=== PATIENT | male | born 1970 | race Caucasian/White ===

== ENCOUNTER 2025-03-08 11:24 | Emergency (ER) | payer BC ==
[~2025-03-08] VITALS: Ht 180.3 cm; Wt 111.4 kg
[2025-03-08] MEDS ORDERED: FEXO-25 PO (11:49)
[2025-03-08] MEDS: ondansetron/PF 4mg/2ml inj IV ONE (11:57)
[2025-03-08 11:59] LABS: MEAN PLATELET VOLUME 7.5 FL (7.4-10.4); RED CELL DISTRIBUTION WIDTH 13.1 % (11.5-14.5)
[2025-03-08] MEDS: morphine 4 MG/ML inj SYRINge IV ONE (11:59)
[2025-03-08 12:16] LABS: CREATININE 1.15 MG/DL (0.60-1.10); TOTAL CARBON DIOXIDE 24.3 MMOL/L (24-32); eCRCL 79 ML/MIN; eGFR 67 ML/MIN
--- NOTE | 2025-03-08 12:48 | RADIOLOGY REPORT ---
EXAM: CT CT LUMBAR SPINE HISTORY: INJURY COMPARISON: None TECHNIQUE: Noncontrast axial CT images of the lumbar spine were performed. Sagittal and coronal reformatted images were obtained. This CT exam was performed using one or more of the following dose reduction techniques: Automated exposure control, adjustment of the mA and/or kv according to patient size, or the use of iterative reconstruction techniques. Radiation Dose: CT Dose: CTDI volume is 34.8 mGy. Dose-length product is 1261.6 mGy*cm FINDINGS: No fractures are identified about the lumbar spine. There is 4 mm retrolisthesis L5 on S1. There is advanced degenerative disc disease L5-S1, less severe degenerative disc disease at other levels. There is significant neural foraminal stenosis bilaterally at L5-S1. No high-grade spinal canal stenosis is identified at any level in the lumbar spine. There is a solid mass versus complex cyst involving the right renal superior pole measuring 2.6 cm transverse (image 22, series 3). The potato grader film demonstrates a dilated loop of left mid abdominal small bowel. IMPRESSION: 1. No fracture of the lumbar spine. 2. Degenerative disc disease with significant neural foraminal stenosis bilaterally at L5-S1. These findings may correspond to bilateral lower extremity radicular symptoms in the L5 nerve root distributions. 3. 2.6 cm right renal superior pole solid mass versus complex cyst. Recommend follow-up outpatient pre and post IV contrast CT scan of the abdomen utilizing renal mass protocol for better characterization. 4. The potato grader film demonstrates a single loop of mildly dilated small bowel in the left mid abdomen. This appearance could be due to focal ileus. Consider follow-up CT scan of the abdomen and pelvis to include oral and IV contrast for better characterization.
--- NOTE | 2025-03-08 16:23 | Physician Documentation ---
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 He is in severe pain but denies paralysis, incontinence of stool. Medication Reconciliation Allergies: Coded Allergies: No Known Allergies (Unverified , 03/08/25) Scheduled Fexofenadine Hcl (Joan Allergy), 1 TAB PO Q12H, (Reported) Past Medical History Smoking Status: Current every day smoker Review of Systems All Other Systems at this time: Reviewed and Negative Physical Exam Physical Exam Vital Signs: RN Vital Signs have been reviewed: Yes, Temperature: 98.2, Source: Oral, Heart Rate: 54, Respiratory Rate: 16, BP: 121/81, Pulse Oximetry: 100, Weight: 111.360 Oxygen Flow Rate: 0 Physical Exam HEENT: PERRL, moist oral mucosa, EOMI Pulmonary: No respiratory distress MSK: no deformity Skin: w/d/i, no rash Neuro: alert, nonfocal; 5/5 strength to BLE Psych: normal affect Progress Results/Orders Results/Orders Orders - DOMINGA MILLER MD Mri Lumbar Spine (03/08/25 ) Urinalysis, Cult If Indicated (03/08/25 11:51) Completed Orders - DOMINGA MILLER MD Cbc/Diff (03/08/25 11:51) CMP (03/08/25 11:51) Hydromorphone 1 Mg/Ml/Pf (Dilaudid Inj.) (03/08/25 13:10) Medications Received in ER Medications (Trade) Dose Ordered Sig/Adalid Route PRN Reason Start Time Stop Time Status Last Admin Dose Admin (Zofran 4mg/2ml vial) 4 mg ONCE ONCE IV 03/08/25 11:45 03/08/25 11:46 DC 03/08/25 11:57 4 MG (morphine inj.) 4 mg ONCE ONCE IV 03/08/25 11:45 03/08/25 11:46 DC 03/08/25 11:59 4 MG (Dilaudid inj.) 1 mg ONCE ONCE IV 03/08/25 13:10 03/08/25 13:25 DC 03/08/25 14:08 1 MG Vital Signs 03/08/25 03/08/25 03/08/25 03/08/25 11:33 11:45 11:52 11:59 Temp 98.2 Pulse 63 62 Resp 14 15 14 15 B/P (MAP) 130/86 159/110 (126) Pulse Ox 98 100 O2 Flow Rate 0 0 03/08/25 03/08/25 03/08/25 03/08/25 12:15 12:45 13:15 13:45 Pulse 62 58 52 61 Resp 11 16 11 13 B/P (MAP) 153/98 (116) 130/89 (103) 126/82 (97) Pulse Ox 100 99 99 O2 Flow Rate 0 0 0 03/08/25 03/08/25 03/08/25 03/08/25 14:08 14:15 15:30 16:30 Temp 99.8 Pulse 54 62 52 Resp 12 16 7 10 B/P (MAP) 121/81 (94) 137/88 (104) 143/92 (109) Pulse Ox 100 99 99 O2 Flow Rate 0 0 0 03/08/25 17:30 Pulse 55 Resp 8 B/P (MAP) 153/88 (109) Pulse Ox 100 O2 Flow Rate 0 Laboratory Tests Test 03/08/25 11:45 White Blood Count 7.8 Red Blood Count 4.82 Hemoglobin 14.8 Hematocrit 42.6 Mean Corpuscular Volume 88.4 Mean Corpuscular Hemoglobin 30.7 Mean Corpuscular Hemoglobin Concent 34.7 Red Cell Distribution Width 13.1 Platelet Count 314 Mean Platelet Volume 7.5 Neutrophils (%) (Auto) 54.7 Lymphocytes (%) (Auto) 35.9 Monocytes (%) (Auto) 7.3 Eosinophils (%) (Auto) 1.4 Basophils (%) (Auto) 0.7 Neutrophils # (Auto) 4.3 Lymphocytes # (Auto) 2.8 Monocytes # (Auto) 0.6 Eosinophils # (Auto) 0.1 Basophils # (Auto) 0.1 CBC Comment Sodium Level 138 Potassium Level 4.3 Chloride Level 103 Carbon Dioxide Level 24.3 Anion Gap 11 Blood Urea Nitrogen 16 Creatinine 1.15 H Estimated GFR/1.73 m2 67 BUN/Creatinine Ratio 13.9 Glucose Level 124 H Calcium Level 9.7 Total Bilirubin 0.8 Aspartate Amino Transf (AST/SGOT) 21 Alanine Aminotransferase (ALT/SGPT) 36 Alkaline Phosphatase 64 Total Protein 8.1 Albumin 4.9 Globulin 3.2 Albumin/Globulin Ratio 1.5 Chemistry Comments Medical Decision Making Findings 54 year old male with acute back pain that appears quite severe. CT thus far is unremarkable other than for L5/S1 disease with no intrusion into spinal canal, but pending MRI. Labs unremarkable. Will sign out to oncoming ER physician for continued care and disposition. Differential Diagnosis Ddx = lumbar radiculopathy, cauda equina syndrome, vertebral body fracture, disc herniation, muscle strain Departure Disposition: 30 STILL A PATIENT Impression: Primary Impression: Acute back pain Condition: Improved Referrals: NO PRIMARY CARE PROVIDER (PCP) Education Educated: Patient Educated regarding: diagnosis, treatment, prognosis, need for follow up Signature Scribe Signature: . Attestation: . DOMINGA MILLER MD Mar 08, 2025 16:23
[2025-03-08 16:30] VITALS: TEMP 99.8
[2025-03-08] MEDS: normal saline 1000ML IV soln IVB ONE (18:27)
--- NOTE | 2025-03-08 19:27 | RADIOLOGY REPORT ---
EXAM: MR MRI LUMBAR SPINE INDICATION: low back pain TECHNIQUE: Multiplanar, multisequence MR images of the lumbar spine were obtained without the administration of IV contrast. COMPARISON: CT CT LUMBAR SPINE on DOS: 03/08/25 FINDINGS: [ANATOMY]: Five lumbar-type vertebral bodies are present. The most inferior well-formed disc space will be referred to as L5-S1 for purposes of numbering in this report. 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 [SPINAL CANAL]: The conus medullaris is normal in signal and morphology, terminating at the L1-L2 level. No significant spinal canal narrowing. [FACETS]: Mild facet arthropathy in the lower lumbar spine at L3-4, L4-5, L5-S1 [OTHER]: None. LEVEL BY LEVEL DISCUSSION: [T12-L1]: Vertebral body hemangioma with the areas of fat suppression measuring 2.2 cm at T12. [L1-L2]: Unremarkable. [L2-L3]: Unremarkable. [L3-L4]: Unremarkable. [L4-L5]: Central to left paracentral disc extrusion with inferior extension measuring 4 mm posteriorly and 11 mm in width. Contact with the descending left L5 nerve root. Mild bilateral foraminal narrowing secondary to facet arthropathy [L5-S1]: Circumferential disc bulge with 3 mm posterior extension. Mild bilateral facet arthropathy. Severe right and mild left foraminal narrowing. IMPRESSION: 1. Central to left paracentral disc extrusion with inferior extension measuring 4 mm posteriorly and 11 mm in width. Contact with the descending left L5 nerve root. 2. Mild bilateral foraminal narrowing secondary to facet arthropathy.
[2025-03-08] MEDS: ketorolac trometh 15mg/ml vial 15 MG/ML ML IV ONE (20:07)
[2025-03-08] MEDS: acetaminophen 1,000mg/100ml IV 100 ML IV ONE (20:10)
[2025-03-08] MEDS: orphenadrine citrate 60mg/2ml inj. IM ONE (20:11)
[2025-03-08] MEDS ORDERED: HYDR-3965 PO (21:09)
[2025-03-08] MEDS ORDERED: CYCL-1 PO (21:09)
[2025-03-08 21:26] VITALS: BP 137/97; PULSE 58; RESP 14; O2SAT 98
== END 2025-03-08 21:28 | disposition home or self-care (01) ==
LOC: ER 11:24
DX: M54.50 Low back pain, unspecified (principal); F17.200 Nicotine dependence, unspecified, uncomplicated; X50.0XXA Overexertion from strenuous movement or load, initial encounter; Y93.89 Activity, other specified; Y92.89 Other specified places as the place of occurrence of the external cause; Y99.8 Other external cause status
CPT/HCPCS: 36415; 72131; 72148; 80053; 85025; 96361; 96372; 96374; 96375; 99285; J0131; J1171; J1885; J2270; J2360; J2405; J7030